=== PATIENT | male | born 1975 | race Caucasian/White ===

== ENCOUNTER 2018-05-11 22:18 | Observation (INO) ==
--- NOTE | 2018-05-12 00:43 | ED ---
HPI General Chief complaint: Shortness of Breath/Dyspnea Stated complaint: Chest pain, difficulty breathing Time Seen by Provider: 05/12/18 00:27 History of Present Illness HPI narrative: Patient 42-year-old male presents emergency chest pain center right side and radiating to his left back that started while he was in bed this evening. Patient states hurting him when he takes a deep breath. Also endorses shortness of breath. Patient states some similar happened to him the past he was diagnosed with coronary artery disease and a mild heart attack at an outside facility. Patient states he ultimately had a cardiac catheterization that showed some plaque but no stents were placed. This was 4 years ago and the patient has not seen a public speaker since then. He does smoke but no diagnosis of high blood pressure high cholesterol or diabetes. Patient states the pain is fairly severe, location context as above. Duration is about 2 hours now. Related Data Home Medications Medication Instructions Recorded Confirmed esomeprazole magnesium [Nexium] 20 mg PO DAILY 05/12/18 05/12/18 Allergies Allergy/AdvReac Type Severity Reaction Status Date / Time No Known Allergies Allergy Verified 05/11/18 22:37 Review of Systems ROS: all other systems reviewed are negative [facility] Medical History Medical History Aspiration into airway (Acute) Hypertension (Acute) Surgical History Surgical History H/O cardiac catheterization (Acute) Hx of appendectomy (Acute) Social History Social History Substance History: No History of Abuse Smoking Status: Current every day smoker Tobacco Type: Cigarettes How Often Do You Have a Drink Containing Alcohol: Never Recent Travel in [facility] within the Last 8 Weeks: No Recent Out of Country Travel within the Last 8 Weeks: No Exam Narrative Exam Narrative: GENERAL: Well-developed well-nourished, no obvious distress. Spasms when he takes a deep breath for auscultation. SKIN: Focused skin assessment warm/dry. HEAD: Atraumatic. Normocephalic. EYES: Pupils equal and round. No scleral icterus. No injection or drainage. ENT: No nasal bleeding or discharge. Mucous membranes pink and moist. NECK: Trachea midline. No JVD. CARDIOVASCULAR: Regular rate and rhythm. No murmur appreciated. RESPIRATORY: No accessory muscle use. Clear to auscultation. Breath sounds equal bilaterally. GASTROINTESTINAL: Abdomen soft, non-tender, nondistended. Hepatic and splenic margins not palpable. MUSCULOSKELETAL: No obvious deformities. No clubbing. No cyanosis. No edema. NEUROLOGICAL: Awake and alert. No obvious cranial nerve deficits. Motor grossly within normal limits. Normal speech. PSYCHIATRIC: Appropriate mood and affect; insight and judgment normal. Course Reevaluation(s) Reevaluation #1: I reviewed the patient's history and exam. The patient had been given a nitroglycerin challenge which did not affect his pain. I personally examined the patient. His pain sounds more pleuritic. The patient will be given Toradol 30 mg IV. Patient does have a history of coronary disease and alleged IN. We have discussed chest pain observation with this patient. He has agreed and would like to stay. We will go ahead with the admission process. Time: 02:18 Initial Documented Vital Signs Temperature 98.6 F 05/11/18 22:37 Pulse Rate 86 05/11/18 22:37 Respiratory Rate 16 05/11/18 22:37 Blood Pressure 163/79 H 05/11/18 22:37 Pulse Oximetry 98 05/11/18 22:37 Last Documented Vital Signs Temperature 98.6 F 05/11/18 22:37 Pulse Rate 86 05/11/18 22:37 Respiratory Rate 16 05/11/18 22:37 Blood Pressure 163/79 H 05/11/18 22:37 Pulse Oximetry 98 05/11/18 22:37 Medical Decision Making MDM Narrative Medical decision making narrative: Patient seen as part of rapid medical assessment in triage. They were handed off to the [facility] to follow the MDM as outlined above. If results are outside the patient's expected ED course then either myself or the other physicians will be available for consultation.Patient 42-year-old male with a heart score of 3. Negative troponin and d-dimer are indicated at this time. Will check basic labs and chest x-ray. I think that serial troponins are indicated as a minimum. Otherwise the patient can be offered chest pain center observation and outpatient follow-up with a public speaker at his discretion given his fairly low heart score. Aspirin nitroglycerin sublingual was administered. EKG some nonspecific repolarization abnormality with T wave flattening in 3 V4 V5 and V6. Otherwise normal axis normal R wave progression. There is no ST segment elevation Medical Screen Exam Complete: Yes Emergency Medical Condition: Yes Lab Data Result diagrams: 05/12/18 00:42 05/12/18 00:42 Lab Results 0205/12/18 05/12/18 Range/Units 00:42 00:42 00:42 WBC 11.9 H (4.0-11.0) th/mm3 RBC 4.87 (4.50-5.90) mil/mm3 Hgb 14.5 (13.0-17.0) gm/dL Hct 42.8 (39.0-51.0) % MCV 87.9 (80.0-100.0) fL MCH 29.9 (27.0-34.0) pg MCHC 34.0 (32.0-36.0) % RDW 13.7 (11.6-17.2) % Plt Count 263 (150-450) th/mm3 MPV 8.7 (7.0-11.0) fL Neut % (Auto) 54.4 (16.0-70.0) % Lymph % (Auto) 36.6 (9.0-44.0) % [place] % (Auto) 7.0 (0.0-8.0) % Eos % (Auto) 1.6 (0.0-4.0) % Baso % (Auto) 0.4 (0.0-2.0) % Neut # (Auto) 6.5 (1.8-7.7) th/mm3 Lymph # (Auto) 4.4 (1.0-4.8) th/mm3 [place] # (Auto) 0.8 (0.0-0.9) th/mm3 Eos # (Auto) 0.2 (0.0-0.4) th/mm3 Baso # (Auto) 0.1 (0.0-0.2) th/mm3 WBC Differential . Differential Comment Auto diff final PT 10.0 (9.8-11.6) sec INR 1.0 Ratio APTT 34.8 H (23.4-31.7) sec D-Dimer Quant (PE/DVT) 0.47 (0.00-0.50) mg/L FEU Sodium 141 (136-145) meq/L Potassium 4.3 (3.5-5.1) meq/L Chloride 107 (98-107) meq/L Carbon Dioxide 27.5 (21.0-32.0) meq/L Anion Gap 7 (5-15) meq/L BUN 13 (7-18) mg/dL Creatinine 1.19 (0.60-1.30) mg/dL Estimated GFR 67 L (>89) mL/min Random Glucose 92 (74-106) mg/dL Calcium 8.9 (8.5-10.1) mg/dL Total Bilirubin 0.4 (0.2-1.0) mg/dL AST 26 (15-37) U/L ALT 34 (12-78) U/L Alkaline Phosphatase 66 (45-117) U/L Troponin I Less than 0.02 L (0.02-0.05) ng/mL B-Natriuretic Peptide (0-100) pg/mL Total Protein 7.7 (6.4-8.2) g/dL Albumin 3.9 (3.4-5.0) g/dL 05/12/18 Range/Units 00:42 WBC (4.0-11.0) th/mm3 RBC (4.50-5.90) mil/mm3 Hgb (13.0-17.0) gm/dL Hct (39.0-51.0) % MCV (80.0-100.0) fL MCH (27.0-34.0) pg MCHC (32.0-36.0) % RDW (11.6-17.2) % Plt Count (150-450) th/mm3 MPV (7.0-11.0) fL Neut % (Auto) (16.0-70.0) % Lymph % (Auto) (9.0-44.0) % Cobb % (Auto) (0.0-8.0) % Eos % (Auto) (0.0-4.0) % Baso % (Auto) (0.0-2.0) % Neut # (Auto) (1.8-7.7) th/mm3 Lymph # (Auto) (1.0-4.8) th/mm3 [place] # (Auto) (0.0-0.9) th/mm3 Eos # (Auto) (0.0-0.4) th/mm3 Baso # (Auto) (0.0-0.2) th/mm3 WBC Differential Differential Comment PT (9.8-11.6) sec INR Ratio APTT (23.4-31.7) sec D-Dimer Quant (PE/DVT) (0.00-0.50) mg/L FEU Sodium (136-145) meq/L Potassium (3.5-5.1) meq/L Chloride (98-107) meq/L Carbon Dioxide (21.0-32.0) meq/L Anion Gap (5-15) meq/L BUN (7-18) mg/dL Creatinine (0.60-1.30) mg/dL Estimated GFR (>89) mL/min Random Glucose (74-106) mg/dL Calcium (8.5-10.1) mg/dL Total Bilirubin (0.2-1.0) mg/dL AST (15-37) U/L ALT (12-78) U/L Alkaline Phosphatase (45-117) U/L Troponin I (0.02-0.05) ng/mL B-Natriuretic Peptide 3 (0-100) pg/mL Total Protein (6.4-8.2) g/dL Albumin (3.4-5.0) g/dL Imaging Data Radiologist's impression: Chest X-Ray 05/12/18 00:37 CONCLUSION: The lungs are clear. Discharge Plan Discharge Disposition Patient Disposition: ED Admit(ED Internal Use Only) Discharge Condition Condition: Stable Discharge Details Anticipated Discharge Date: 05/12/18 Diagnosis: Chest pain Physicians Team ED Provider: Alexis Christianson ED Midlevel Provider: Naresh Jones Primary Care Provider: Primary Care Jessica Granger Rxs /Orders / Referrals /Forms Prescriptions: No Action esomeprazole magnesium [Nexium] 20 mg Capsule,Delayed Release(Dr/Ec) 20 mg PO DAILY RF: 0 Discharge Interventions Interventions: Vital Signs Last Done: 05/11/18 22:44 Status ED Status: Admitted Observation Patient
[2018-05-12 01:04] LABS: Baso # (Auto) 0.1 th/mm3 (0.0-0.2); Baso % (Auto) 0.4 % (0.0-2.0); Eos # (Auto) 0.2 th/mm3 (0.0-0.4); Eos % (Auto) 1.6 % (0.0-4.0); Hematocrit 42.8 % (39.0-51.0); Hemoglobin 14.5 gm/dL (13.0-17.0); Lymph # (Auto) 4.4 th/mm3 (1.0-4.8); Lymph % (Auto) 36.6 % (9.0-44.0); Mean Corpuscular Hemoglobin 29.9 pg (27.0-34.0); Mean Corpuscular Volume 87.9 fL (80.0-100.0); Mean Platelet Volume 8.7 fL (7.0-11.0); Mono # (Auto) 0.8 th/mm3 (0.0-0.9); Neut # (Auto) 6.5 th/mm3 (1.8-7.7); Neut % (Auto) 54.4 % (16.0-70.0); Platelet Count 263 th/mm3 (150-450); Red Blood Count 4.87 mil/mm3 (4.50-5.90); Red Cell Distribution Width 13.7 % (11.6-17.2); White Blood Count 11.9 th/mm3 (4.0-11.0)
[2018-05-12 01:13] LABS: Activated Partial Thrombo Time 34.8 sec (23.4-31.7)
[2018-05-12 01:16] LABS: Albumin 3.9 g/dL (3.4-5.0); Anion Gap 7 meq/L (5-15); Aspartate Aminotransferase 26 U/L (15-37); Blood Urea Nitrogen 13 mg/dL (7-18); Calcium 8.9 mg/dL (8.5-10.1); Carbon Dioxide 27.5 meq/L (21.0-32.0); Chloride 107 meq/L (98-107); Glomerular Filtration Rate 67 mL/min (>89); Glucose,Random 92 mg/dL (74-106); Potassium 4.3 meq/L (3.5-5.1); Sodium 141 meq/L (136-145)
[2018-05-12 01:21] LABS: Alanine Aminotransferase 34 U/L (12-78); Alkaline Phosphatase 66 U/L (45-117); Total Protein 7.7 g/dL (6.4-8.2)
[2018-05-12 01:27] LABS: D-Dimer 0.47 mg/L FEU (0.00-0.50)
--- NOTE | 2018-05-12 01:38 | XR ---
EXAM DATE: 05/12/2018 1:13 AM EST AGE/SEX: 42 years / Male INDICATIONS: Chest pain. CLINICAL DATA: This is the patient's initial encounter. Patient reports that signs and symptoms have been present for 1 day and indicates a pain score of 5/10. MEDICAL/SURGICAL HISTORY: . History of serious trauma thirty years ago to include bilateral pne umothoraces. Appendectomy. COMPARISON: No prior exams available for comparison. FINDINGS: A single AP view of the chest demonstrates the lungs to be symmetrically aerated without evidence of mass, infiltrate or effusion. The cardiomediastinal contours are unremarkable. Osseous structures a re intact. CONCLUSION: The lungs are clear. Electronically signed by: Isaiah Tate MD Board Certified Radiologist 05/12/2018 1:36 AM EST
[2018-05-12] MEDS ORDERED: Ketorolac Inj 30 MG/ML (IVP) Vial IV.PUSH ONE (02:13)
[2018-05-12 04:35] VITALS: O2SAT 97
[2018-05-12 05:40] LABS: Creatine Kinase 226 U/L (39-308)
[2018-05-12 07:42] LABS: Creatine Kinase 219 U/L (39-308)
[2018-05-12 08:23] VITALS: BP 115/71; PULSE 56; RESP 17; TEMP 98.4
--- NOTE | 2018-05-12 08:59 | P.HPCA ---
History of Present Illness Service: Chest pain center Primary Care Physician: No Primary Care Physician None Chief Complaint: Chest pain History of Present Illness: 42-year-old white male presents with complaints of right-sided chest pain about 2 hours prior to his admission. However he begins by telling me that he has had no energy for the last several months and that he has had 2 episodes of chest discomfort in the last couple of months both of which seem to be precipitated by "stress". Last night he was preparing for bed when he developed sudden onset of severe 7 out of 10 chest discomfort radiating from the left sternal area into his right chest with a pleuritic component that was so severe he found it difficult to get a breath felt short of breath and dizzy. He also felt some nausea but had no vomiting. This discomfort lasted for several hours and was relieved after coming to the emergency room. He describes it as feeling like someone very heavy was sitting on his right chest. He has a somewhat confusing history stating that 4 years ago he had an appendix burst and underwent an emergency operation at [facility]. This was complicated by aspiration and collapse of his lungs. According to the he was put into coma for several days and maintained on a ventilator and has never been quite the same since. They tell me also at that time he underwent a cardiac catheterization which showed no severe blockage. He also complains of numbness burning and tingling in his left leg ever since this event. He is a [id number] father with 3 teenage children who he says causes him stress. He has a smoker about a half a pack a day but his is a heavy smoker. Both have been counseled regarding cigarette cessation and basically rolled her eyes when I bring it up again. He has a history of hypertension, hyperlipidemia, and fairly severe GERD none of which are followed by physician. He also has a strong family history of hypertension hyperlipidemia and coronary artery disease Review of Systems All other systems reviewed negative except as stated in HPI PMFSH - History History Provided By: Patient - Medical History Medical History: Medical History (Last Updated 05/12/18 @ 09:21 by Tanner Calderón MD) Aspiration into airway Collapse of lung Hyperlipidemia Hypertension Tobacco abuse - Surgical History Surgical History: Surgical History (Last Updated 05/11/18 @ 22:43 by Dianelys Farrell) H/O cardiac catheterization Hx of appendectomy - Tobacco History Tobacco Use In Past 30 Days: Yes Smoking Status: Current every day smoker Tobacco Type: Cigarettes - Alcohol History How Often Do You Have a Drink Containing Alcohol: Never - Substance Use History Substance History: No History of Abuse - Travel History Recent Travel in the [place] Within the Last 8 Weeks: No Recent Travel Out of the Country Within the Last 8 Weeks: No - Immunization History Tetanus Immunization: Unsure Medications and Allergies Active Medications: Active Medications Sodium Chloride (Ns Flush) 2 ml IV.FLUSH UNSCH PRN PRN Reason: FLUSH AFTER USING IV ACCESS Sodium Chloride (Ns Flush) 2 ml IV.FLUSH BID OSIEL Sodium Chloride (Ns Flush) 2 ml IV.FLUSH PRN PRN PRN Reason: FLUSH AFTER USING IV ACCESS Allergies Allergy/AdvReac Type Severity Reaction Status Date / Time No Known Allergies Allergy Verified 05/11/18 22:37 Home Medications Medication Instructions Recorded Confirmed Type esomeprazole magnesium [Nexium] 20 mg PO DAILY 05/12/18 05/12/18 History Exam Vital signs: Vital Signs 05/11/18 22:37 05/12/18 04:34 05/12/18 04:40 Temperature 98.6 F 97.8 F Pulse Rate 86 74 Respiratory Rate 16 20 20 Blood Pressure 163/79 H 119/72 Pulse Oximetry 98 97 05/12/18 04:41 05/12/18 08:21 Temperature 98.4 F Pulse Rate 56 L Respiratory Rate 22 17 Blood Pressure 115/71 Pulse Oximetry Intake & Output 05/11/18 05/12/18 05/12/18 18:59 06:59 18:59 Weight 111.13 kg Narrative: Well-nourished well-developed man resting with at bedside Skin warm and dry with multiple amateur tattoos Head normocephalic atraumatic Eyes PERRLA EOMI sclera clear Mouth mucous membranes moist tongue well papillated midline uvula no lesions Neck supple no JVD masses nodes or bruits Chest significantly tender over the right mid chest. Breath sounds equal with no rales wheezes or rhonchi Cardiovascular PMI is not displaced there is a regular rhythm no gallops rubs or murmurs Abdomen soft nontender no guarding or rebound well-healed surgical scar no masses Extremities no clubbing cyanosis or edema Neurologic memory is intact cranial nerves intact (olfactory auditory and optic not tested) and motor is grossly intact and normal. Vibratory and proprioceptive testing not carried out Psychiatric appears to be sullen and possibly a bit depressed Results 05/12/18 00:42 05/12/18 00:42 Cardiac Enzymes 05/12/18 05/12/18 05/12/18 Range/Units 00:42 00:42 05:02 AST 26 (15-37) U/L Troponin I Less than 0.02 L Less than 0.02 L (0.02-0.05) ng/mL B-Natriuretic Peptide 3 (0-100) pg/mL 05/12/18 Range/Units 06:50 AST (15-37) U/L Troponin I Less than 0.02 L (0.02-0.05) ng/mL B-Natriuretic Peptide (0-100) pg/mL Coagulation 05/12/18 05/12/18 Range/Units 00:42 00:42 PT 10.0 (9.8-11.6) sec APTT 34.8 H (23.4-31.7) sec B-Natriuretic Peptide 3 (0-100) pg/mL CBC 05/12/18 Range/Units 00:42 WBC 11.9 H (4.0-11.0) th/mm3 RBC 4.87 (4.50-5.90) mil/mm3 Hgb 14.5 (13.0-17.0) gm/dL Hct 42.8 (39.0-51.0) % Plt Count 263 (150-450) th/mm3 Neut # (Auto) 6.5 (1.8-7.7) th/mm3 Lymph # (Auto) 4.4 (1.0-4.8) th/mm3 [place] # (Auto) 0.8 (0.0-0.9) th/mm3 Eos # (Auto) 0.2 (0.0-0.4) th/mm3 Baso # (Auto) 0.1 (0.0-0.2) th/mm3 Comprehensive Metabolic Panel 05/12/18 Range/Units 00:42 Sodium 141 (136-145) meq/L Potassium 4.3 (3.5-5.1) meq/L Chloride 107 (98-107) meq/L Carbon Dioxide 27.5 (21.0-32.0) meq/L BUN 13 (7-18) mg/dL Creatinine 1.19 (0.60-1.30) mg/dL Calcium 8.9 (8.5-10.1) mg/dL AST 26 (15-37) U/L ALT 34 (12-78) U/L Alkaline Phosphatase 66 (45-117) U/L Total Protein 7.7 (6.4-8.2) g/dL Albumin 3.9 (3.4-5.0) g/dL Intake and Output 05/11/18 05/12/18 05/12/18 22:59 06:59 14:59 Other: Weight 111.13 kg - Imaging and Cardiology Imaging: Impressions Chest X-Ray 05/12/18 00:37 CONCLUSION: The lungs are clear. Caprini VTE Risk Assessment Caprini VTE Risk Assessment: No/Low Risk (score <= 1) Caprini Risk Assessment Model: Point Value = 1 Point Value = 2 Point Value = 3 Point Value = 5 Age 41-60 Minor surgery BMI > 25 kg/m2 Swollen legs Varicose veins or History of unexplained or recurrent spontaneous Oral contraceptives or hormone replacement Sepsis (< 1 month) Serious lung disease, including pneumonia (< 1 month) Abnormal pulmonary function Acute myocardial infarction Congestive heart failure (< 1 month) History of inflammatory bowel disease Medical patient at bed rest Age 61-74 Arthroscopic surgery Major open surgery (> 45 min) Laparoscopic surgery (> 45 min) Malignancy Confined to bed (> 72 hours) Immobilizing plaster cast Central venous access Age >= 75 History of VTE Family history of VTE Factor V Leiden Prothrombin [id number] Lupus anticoagulant Anticardiolipin antibodies Elevated serum homocysteine Heparin-induced thrombocytopenia Other congenital or acquired thrombophilia Stroke (< 1 month) Elective arthroplasty Hip, pelvis, or leg fracture Acute spinal cord injury (< 1 month) Prophylaxis Regimen: Total Risk Factor Score Risk Level Prophylaxis Regimen 0-1 Low Early ambulation 2 Moderate Order ONE of the following: *Sequential Compression Device (SCD) *Heparin 5000 units SQ BID 3-4 Higher Order ONE of the following medications: *Heparin 5000 units SQ TID *Enoxaparin/Lovenox 40 mg SQ daily (WT < 150 kg, CrCl > 30 mL/min) *Enoxaparin/Lovenox 30 mg SQ daily (WT < 150 kg, CrCl > 10-29 mL/min) *Enoxaparin/Lovenox 30 mg SQ BID (WT < 150 kg, CrCl > 30 mL/min) AND/OR *Sequential Compression Device (SCD) 5 or more Highest Order ONE of the following medications: *Heparin 5000 units SQ TID (Preferred with Epidurals) *Enoxaparin/Lovenox 40 mg SQ daily (WT < 150 kg, CrCl > 30 mL/min) *Enoxaparin/Lovenox 30 mg SQ daily (WT < 150 kg, CrCl > 10-29 mL/min) *Enoxaparin/Lovenox 30 mg SQ BID (WT < 150 kg, CrCl > 30 mL/min) AND *Sequential Compression Device (SCD) Assessment and Plan - Plan This patient has atypical chest pain right-sided pleuritic that has now spontaneously resolved. He has a catheterization about 4 years ago which reportedly showed no significant disease. However he does have risk factors and is somewhat complex history. He has a possible neuropathy of the left leg and significant shortness of breath dyspnea on exertion so exercise testing is not a good option. As a result he will be evaluated with a Lexiscan this morning. If negative he will be discharged with recommendation of follow-up on an outpatient basis establish with a primary care physician and stop smoking. If positive further evaluation will be carried out. Code Status: Full code Discussed Condition With: Discussed with patient and - Attending Attestation Attest to the fact that this patient's evaluation and treatment are appropriate for his presentation
[2018-05-12] MEDS ORDERED: Regadenoson Inj 0.4 MG/5 ML Syringe IV.PUSH ONE (09:18)
--- NOTE | 2018-05-12 12:25 | ECG ---
Date Performed: 05/12/2018 Time Performed: 05:20:11 PTAGE: 42 years EKG: SINUS BRADYCARDIA MODERATE T-WAVE ABNORMALITY, CONSIDER LATERAL ISCHEMIA ABNORMAL ECG Nonsp ecific T wave changes somewhat increased from prior tracing PREVIOUS TRACING : 05/12/2018 00.37 DOCTOR: Tanner Calderón Interpretating Date/Time 05/12/2018 12:24:10
--- NOTE | 2018-05-12 12:25 | ECG ---
Date Performed: 05/12/2018 Time Performed: 06:59:05 PTAGE: 42 years EKG: SINUS BRADYCARDIA NONSPECIFIC T-WAVE ABNORMALITY BORDERLINE ECG No significant change PREVIOUS TRACING : 05/12/2018 00.37 DOCTOR: Tanner Calderón Interpretating Date/Time 05/12/2018 12:23:17
--- NOTE | 2018-05-12 12:26 | ECG ---
Date Performed: 05/12/2018 Time Performed: 00:37:45 PTAGE: 42 years EKG: Sinus rhythm NONSPECIFIC T-WAVE ABNORMALITY BORDERLINE ECG NO PREVIOUS TRACING DOCTOR: Tanner Calderón Interpretating Date/Time 05/12/2018 12:24:49
--- NOTE | 2018-05-12 12:30 | TR ---
Date Performed: 05/12/2018 Time Performed: 11:50:50 DOCTOR: Tanner Calderón DRUG LIST: CLINICAL HISTORY: REASON FOR TEST: REASON FOR ENDING: OBSERVATION: CONCLUSION: Lexiscan stress test was performed under standard four minute protocol. Radionuclide was injected one minute prior to ending the test. No electrocardiographic abormalities were present to suggest ischemia. Nuclear imaging and interpretation are pending. COMMENTS:
--- NOTE | 2018-05-12 12:54 | NM ---
EXAM DATE: 05/12/2018 12:50 PM EST AGE/SEX: 42 years / Male INDICATIONS:Angina. . Right sided chest pain. CLINICAL DATA: This is the patient's initial encounter. Patient reports that signs and symptoms have been present for 1 day and indicates a pain score of 3/10. MEDICAL/SURGICAL HISTORY: Hypertension. Appendectomy. COMPARISON: No prior exams available for comparison. DOSE: 11 mCi Tc 99m Myoview at rest 35 mCi [id number] at stress 0.4 mg Lexiscan STRESS SYMPTOMS: Nausea. EJECTION FRACTION: >70 % TECHNIQUE: The patient underwent pharmacologic stress with infusion of prescribed dose. Continuous ECG tracing was monitored during stress. Gated SPECT imaging was performed after stress and conventi onal SPECT imaging was performed at rest. The examination was performed on a SPECT/CT scanner, both attenuation and non-corrected datasets were reviewed. FINDINGS: Distribution: The maximum perfused segment at stress is in the anterolateral wall. Perfusion Study: The pattern of perfusion at stress is within normal limits. Gated Study: There are intact wall motion and wall thickening without hypokinetic or dyskinetic segm ents. The ejection fraction is calculated at >70%. RISK CATEGORY: Low (<1% Annual Mortality Rate) CONCLUSION: Unremarkable myocardial perfusion scan. Electronically signed by: Zaid Boone MD Board Certified Radiologist 05/12/2018 12:53 PM EST
== END 2018-05-12 13:36 | disposition home or self-care (01) ==
LOC: NEPB 22:18 → NEDA 22:18 → NEDH 05-12 07:12
PROVIDERS: ADMIT Internal Medicine Interventional Cardiology; ATTEND Internal Medicine Interventional Cardiology
DX: I10 Essential (primary) hypertension; I25.119 Atherosclerotic heart disease of native coronary artery with unspecified angina pectoris; F17.210 Nicotine dependence, cigarettes, uncomplicated; K21.9 Gastro-esophageal reflux disease without esophagitis; R07.89 Other chest pain; R20.2 Paresthesia of skin; E78.5 Hyperlipidemia, unspecified; R11.0 Nausea; R06.02 Shortness of breath; R20.0 Anesthesia of skin
CPT/HCPCS: 71010; 71045; 78452; 80053; 82550; 83520; 83880; 84484; 85025; 85379; 85610; 85730; 93005; 93017; 96374; 99285; A9502; G0378; J1885; J2785; Q9969